=== PATIENT | female | born 1975 | race Caucasian/White ===

== ENCOUNTER 2021-09-05 18:46 | Emergency (ER) | payer SELFPAY ==
[~2021-09-05] VITALS: Ht 162.6 cm; Wt 55.8 kg
--- NOTE | 2021-09-05 19:32 | NUR ---
Dr Graves at bedside, MSE in progress.
[2021-09-05] MEDS ORDERED: IBUPROFEN 800 MG TABLET ONE (19:41)
[2021-09-05] MEDS ORDERED: IBUPROFEN 800 MG TABLET PO ONE (19:45)
--- NOTE | 2021-09-05 21:21 | NUR ---
Pt out of ER for CT.
--- NOTE | 2021-09-05 22:00 | NUR ---
Pt back to ER from CT.
[2021-09-05] MEDS ORDERED: IBUP-1957 PO (22:05)
--- NOTE | 2021-09-05 22:10 | NUR ---
Patient discharged to home in stable condition. Written and verbal after care instructions given. Patient verbalizes understanding of instructions. Stressed follow up or return to ER for worsening s/s. Patient out of ER with steady gait, no acute signs of distress, VSS, all belongings taken, Pt provided with copies of CT results and CD of images.
[2021-09-05 22:11] VITALS: BP 106/71
== END 2021-09-05 22:12 | disposition home or self-care (01) ==
LOC: ER 18:46
DX: S16.1XXA Strain of muscle, fascia and tendon at neck level, initial encounter (principal); S06.0X9A Concussion with loss of consciousness of unspecified duration, initial encounter; R40.2362 Coma scale, best motor response, obeys commands, at arrival to emergency department; R40.2142 Coma scale, eyes open, spontaneous, at arrival to emergency department; R40.2252 Coma scale, best verbal response, oriented, at arrival to emergency department; V49.40XA Driver injured in collision with unspecified motor vehicles in traffic accident, initial encounter; Y92.414 Local residential or business street as the place of occurrence of the external cause; M54.50 Low back pain, unspecified
CPT/HCPCS: 70450; 72125; 72131; A4663